=== PATIENT | female | born 1975 | race Caucasian/White ===

== ENCOUNTER → 2021-12-10 | Outpatient (CLI) | payer OTHER ==
[~2021-12-10] VITALS: Ht 167.6 cm; Wt 87.5 kg
[~2021-12-10] MED LIST: ADDERALL XR 2525 MG PO; CYTOMEL 5MCG TA5 MCG PO; DULCOLAX STOOL100 M1 PO; FLONASE 0.05%50 MCG NASAL; LEVO-T50 MCG PO; PLAQUENIL200 MG PO; PREGABALIN75 MG PO; SERTRALINE HCL100 MG PO; TOPROL XL25 MG PO
[2021-12-10 07:17] VITALS: BP 108/56
[2021-12-10 07:43] LABS: ABSOLUTE NEUTROPHILS 2.6 thou/uL (1.4-8.2); BASOPHILS 0.5 % (0.0-2.0); EOSINOPHILS 1.9 % (0.0-3.0); HEMATOCRIT 39.6 % (37.0-47.0); HEMOGLOBIN 13.3 gm/dL (12.0-15.0); LYMPHOCYTES 35.1 % (24.0-44.0); MCH 30.2 pg (26.0-34.0); MCHC 33.5 g/dL (28.0-37.0); MCV 89.9 fL (80.0-100.0); MONOCYTES 10.5 % (1.0-8.0); PLATELET COUNT 251 thou/uL (150-400); RDW 13.2 % (10.5-14.5); WBC 5.1 thou/uL (4.0-11.0)
[2021-12-10 07:51] LABS: CALCIUM 8.1 mg/dL (8.5-10.1); CREATININE 0.6 mg/dL (0.6-1.0); POTASSIUM 3.8 mmol/L (3.5-5.1)
[2021-12-10 07:57] LABS: ALBUMIN 3.5 g/dL (3.4-5.0); TOTAL BILIRUBIN 0.6 mg/dL (0.2-1.0); TOTAL PROTEIN 6.8 g/dL (6.4-8.2)
[2021-12-10 08:20] LABS: APTT 27.5 Seconds (24.5-32.8); INR 0.93; PROTIME 10.2 Seconds (10.5-12.1)
--- NOTE | 2021-12-11 08:48 | P ---
[facility] [place] [address] PROCEDURE REPORT Name: ROSSANA WAKEFIELD Room #: REG [facility]#: [id number] Admission: 12/10/21 Attend Phys: Valentino To MD Discharge: Date of : 71 Report #: [id number] THIS REPORT FOR: cc: Sung Ramírez MD, Prashanth S. MD Couchonnal, Luis F. MD ~ DATE OF SERVICE: 12/10/2021 PREOPERATIVE DIAGNOSIS: Supraventricular tachycardia. 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 PROCEDURES PERFORMED: 1. SVT ablation, CPT code 35379. 2. EP with left atrial pacing and recording, CPT code 58153. 3. Program stimulation pacing after IV drug infusion, CPT code 25199. 4. 3D mapping, CPT code 43507. HISTORY: The patient is a 46-year-old female with recurrent SVT, here for ablation. DESCRIPTION OF PROCEDURE: The patient was brought to the EP laboratory in fasting and sedated state, prepped and draped in a standard fashion. Prior to the ablation, she underwent informed consent. I then obtained access to the right femoral vein x 3, placing an 8, 6 and 7-[place] short sheath and obtained access to the left femoral vein times x 1 placing a 6-[place] short sheath. Under fluoroscopy, I placed three quadripolar catheters at the HRA, His and RV positions and a decapolar catheter into the coronary sinus for left atrial pacing and recording. The basic EP study was performed. At baseline, the patient was in sinus rhythm, sinus cycle length of 1000 milliseconds, DE interval of 164 milliseconds, QRS duration of 90 milliseconds, QT interval of 465 milliseconds, AH interval of 95 milliseconds and HV interval of 40 milliseconds. Atrial pacing was performed and AV block was noted at 500 milliseconds. AV nahomy ERP was noted at 420 milliseconds at a [address] cycle length. Ventricular pacing was performed and VA block was noted at 340 milliseconds and VERP was noted at 240 milliseconds at [address] cycle length. VA conduction was both midline and decremental. Next, isoproterenol infusion was started at 2 mcg per minute and with atrial burst pacing, the patient went into SVT with a tachycardia cycle length of 300 milliseconds, septal VA time of 35 milliseconds. Ventricular entrainment was performed and there was evidence of a VAHV response consistent with typical AV nahomy reentrant tachycardia. I was able to terminate this and then I was able to induce it with a single atrial extrastimuli. Again, this was very easily inducible. Next, ventricular pacing was performed, ventricular ERP was noted at 210 milliseconds at a [address] cycle length. As such, a diagnosis of typical AV nahomy reentrant tachycardia was made. [facility] [address] [place] [address] PROCEDURE REPORT Name: ROSSANA WAKEFIELD Room #: REG [facility] MadhuAlexia#: [id number] Admission: 12/10/21 Attend Phys: Valentino To MD Discharge: Date of : 71 Report #: [id number] SVT ablation and 3D mapping: Next, I placed a 4 mm ablation catheter via an SR0 sheath into the right atrium. I created 3D geometry of the right atrium with specific emphasis of the His bundle region and slow pathway region. Ablation was performed at 50 darden and 55 degrees. The first ablation lesion resulted in no junctionals. The second ablation lesion resulted in 10 junctionals during a 60-second interval. The third burn resulted in nice slow junctionals that lasted about 50 seconds. There was never any compromise to AV nahomy conduction. Post-ablation findings: Post-ablation isoproterenol was reinitiated at 2 mcg per minute. AV block was noted at 290 milliseconds. Atrial ERP was noted at 220 milliseconds at a [address] cycle length. On isoproterenol, the patient would have short bursts of atrial tachycardia, which were high to low in activation, but no junctional beats and no AV nahomy echoes and no inducible AVNRT. As such, isoproterenol was turned off. AV block was noted at 500 milliseconds and the final numbers demonstrated the atrial cycle length of 640 milliseconds, DE interval of 170 milliseconds, QRS duration of 90 milliseconds, QT interval of 390 milliseconds, AH interval of 106 milliseconds, and HV interval of 39 milliseconds. As such, catheters and sheaths were pulled. Hemostasis was obtained. The patient awoke neurologically and hemodynamically intact, with no complications. CONCLUSION: 1. Successful ablation of typical AV nahomy reentrant tachycardia. 2. Normal SA nahomy function. 3. Normal AV nahomy function. 4. Normal His-Purkinje function. 5. No other inducible arrhythmias on or off isoproterenol. <ELECTRONICALLY SIGNED> By: Valentino To MD 12/11/21 [id number] Valentino To MD /nt
== END | disposition home or self-care (01) ==
LOC: CATH 11-19 09:00
PROVIDERS: ATTEND Internal Medicine Cardiovascular Disease
DX: I47.1 Supraventricular tachycardia (principal); I49.9 Cardiac arrhythmia, unspecified; Z98.890 Other specified postprocedural states; Z79.899 Other long term (current) drug therapy; Z90.710 Acquired absence of both cervix and uterus; Z20.822 Contact with and (suspected) exposure to COVID-19; Z90.49 Acquired absence of other specified parts of digestive tract; Z88.6 Allergy status to analgesic agent
CPT/HCPCS: 62110; 62900; 70005